=== PATIENT | female | born 1970 | race African-American/Black ===

== ENCOUNTER 2018-09-13 09:40 | Emergency (ER) | payer SELFPAY ==
--- NOTE | 2018-09-13 10:00 | ER Document Report ---
ED Respiratory Problem - General Chief Complaint: Productive Cough Stated Complaint: COUGH/DIFFICULTY BREATHING Time Seen by Provider: 09/13/18 09:55 Notes: 48-year-old female presented to ED for cough cold congestion sore to her back. She denies any fever. She states the cough is been on and off for 2 weeks. She has not had any fever throughout this episode. She is not coughing up anything. Patient is alert oriented respirations regular and unlabored speaking in full sentences walks with even steady gait. TRAVEL OUTSIDE OF THE [place] IN LAST 30 DAYS: No - HPI Patient complains to provider of: Cough Onset: Other - 2 weeks Duration: Intermittent episodes Initiating Event: URI Quality of pain: Achy Severity: Mild Pain Level: 2 Cough: Nonproductive Sputum amount: None Associated symptoms: Congestion, Cough, PND, Runny nose, Sinus pain/pressure, Short of breath Similar symptoms previously: Yes Recently seen / treated by doctor: No - Related Data Allergies/Adverse Reactions: No Known Allergies Allergy (Verified 09/13/18 09:43) Past Medical History - General Information source: POA - Power of Pathology Laboratory Director - Social History Smoking Status: Never Smoker Frequency of alcohol use: Social Drug Abuse: None Occupation: Customer service Lives with: Spouse/Significant other - Female significant other Family History: Reviewed & Not Pertinent Patient has suicidal ideation: No Patient has homicidal ideation: No - Past Medical History Cardiac Medical History: Reports: Hx Hypertension - States she has been told just to watch what she eats and drinks Pulmonary Medical History: Reports: Hx Bronchitis EENT Medical History: Reports: None Neurological Medical History: Reports: None Endocrine Medical History: Reports: None Renal/ Medical History: Reports: None Malignancy Medical History: Reports: None GI Medical History: Reports: None Musculoskeletal Medical History: Reports None Skin Medical History: Reports None Psychiatric Medical History: Reports: None Traumatic Medical History: Reports: None Infectious Medical History: Reports: None Surgical Hx: Negative Past Surgical History: Reports: None - Immunizations Immunizations up to date: Yes Review of Systems - Review of Systems Constitutional: Recent illness. denies: Chills, Fever EENT: No symptoms reported, Nose congestion, Nose discharge, Sinus pressure, Sinus discharge Cardiovascular: No symptoms reported Respiratory: Cough Gastrointestinal: No symptoms reported Genitourinary: No symptoms reported Female Genitourinary: No symptoms reported Musculoskeletal: No symptoms reported Skin: No symptoms reported Hematologic/Lymphatic: No symptoms reported Neurological/Psychological: No symptoms reported -: Yes All other systems reviewed and negative Physical Exam - Vital signs Vitals: Temp Pulse Resp BP Pulse Ox 98.4 F 105 H 20 154/92 H 97 09/13/18 09:48 09/13/18 09:48 09/13/18 09:48 09/13/18 09:48 09/13/18 09:48 Interpretation: Normal - General General appearance: Appears well, Alert - HEENT Head: Normocephalic, Atraumatic Eyes: Normal Pupils: PERRL Ears: Normal External canal: Normal Tympanic membrane: Normal Sinus: Normal Nasal: Purulent discharge, Swelling Mouth/Lips: Normal Mucous membranes: Normal Pharynx: Post nasal drainage Neck: Normal - Respiratory Respiratory status: No respiratory distress. No: Respiratory distress, Cyanosis, Depressed respirations, Tachypnea Chest status: Nontender Breath sounds: Nonproductive cough. No: Productive cough, Rales, Rhonchi, Stridor, Wheezing Chest palpation: Normal - Cardiovascular Rhythm: Regular Heart sounds: Normal auscultation Murmur: No - Abdominal Inspection: Normal Distension: No distension Bowel sounds: Normal Tenderness: Nontender Organomegaly: No organomegaly - Back Back: Normal, Nontender - Extremities General upper extremity: Normal inspection, Nontender, Normal color, Normal ROM, Normal temperature General lower extremity: Normal inspection, Nontender, Normal color, Normal ROM, Normal temperature, Normal weight bearing. No: Mili's sign - Neurological Neuro grossly intact: Yes Cognition: Normal Orientation: AAOx4 Veda Coma Scale Eye Opening: Spontaneous Veda Coma Scale Verbal: Oriented Veda Coma Scale Motor: Obeys Commands [place] Coma Scale Total: 15 Speech: Normal Motor strength normal: LUE, RUE, LLE, RLE Sensory: Normal - Psychological Associated symptoms: Normal affect, Normal mood - Skin Skin Temperature: Warm Skin Moisture: Dry Skin Color: Normal Course - Re-evaluation Re-evalutation: 09/13/18 10:30 X-ray discussed with patient and written report of x-ray given to patient. Patient was instructed to use cold medicine that is good for high blood pressure as she does have elevated blood pressure. Patient states she knows she has had blood pressure but it comes and goes. She has been instructed to follow-up with her primary doctor. After performing a Medical Screening Examination, I estimate there is LOW risk for ACUTE CORONARY SYNDROME, RESPIRATORY FAILURE, SEPSIS OR MENINGITIS, thus I consider the discharge disposition reasonable. I have reevaluated this patient multiple times and no significant life threatening changes are noted. The patient and I have discussed the diagnosis and risks, and we agree with discharging home with close follow-up. We also discussed returning to the Emergency Department immediately if new or worsening symptoms occur. We have discussed the symptoms which are most concerning (e.g., changing or worsening pain, trouble swallowing or breathing, neck stiffness, fever) that necessitate immediate return. - Vital Signs Vital signs: Temp Pulse Resp BP Pulse Ox 98.4 F 105 H 20 154/92 H 97 09/13/18 09:48 09/13/18 09:48 09/13/18 09:48 09/13/18 09:48 09/13/18 09:48 - Diagnostic Test Radiology reviewed: Image reviewed, Reports reviewed Discharge - Discharge Clinical Impression: URI (upper respiratory infection) Qualifiers: URI type: unspecified viral URI Qualified Code(s): J06.9 - Acute upper respiratory infection, unspecified Condition: Stable Disposition: HOME, SELF-CARE Instructions: Family Physicians / Practices Additional Instructions: UPPER RESPIRATORY ILLNESS: You have a viral infection of the respiratory passages -- a "cold." This common infection causes nasal congestion, drainage, and often sore throat and cough. It is highly contagious. The disease usually lasts about 10 to 14 days. There is no "cure" for the viral infection -- it must run its course. If there is a complication, such as bacterial infection in the nose, sinuses, middle ear, or bronchial tubes, antibiotics may be required. The antibiotics won't affect the virus. Drink plenty of fluids. A humidifier may help. An expectorant medication or decongestant may make you more comfortable. Use acetaminophen or ibuprofen for fever or aches. See the doctor if fever persists over two days, if there is any significant worsening of your symptoms, or if you simply fail to improve as expected. USE OF ACETAMINOPHEN (Tylenol): Acetaminophen may be taken for pain relief or fever control. It's much safer than aspirin, offering a wider range of "safe" dosages. It is safe during . Some brand names are Tylenol, Panadol, Datril, Anacin 3, Tempra, and Liquiprin. Acetaminophen can be repeated every four hours. The following are maximum recommended dosages: >89 pounds or adults 650 mg to 900 mg Acetaminophen can be repeated every four hours. Maximum dose not to exceed 4000 mg a day. Please use Coricidin HB for your cough and cold symptoms as you have elevated blood pressure. You can also use Flonase nasal spray, Chloraseptic throat spray, salt and soda solution gargles to remove the phlegm from the back your throat. Salt and soda solution 1 quart of water 1 tablespoon of salt 1 teaspoon of baking soda Mixed 3 ingredients together and boil for 1 minute Placed in a covered quart jar Use 1/2 ounce of cold solution to gargle 3 times a day FOLLOW-UP CARE: If you have been referred to a physician for follow-up care, call the physicians office for an appointment as you were instructed or within the next two days. If you experience worsening or a significant change in your symptoms, notify the physician immediately or return to the Emergency Department at any time for re-evaluation. Forms: Elevated Blood Pressure, Return to Work
--- NOTE | 2018-09-13 10:18 | RADIOLOGY REPORT (SQ) ---
EXAM DESCRIPTION: CHEST 2 VIEWS COMPLETED DATE/TIME: 09/13/2018 10:04 am REASON FOR STUDY: persistent cough COMPARISON: None. EXAM PARAMETERS: NUMBER OF VIEWS: two views TECHNIQUE: Digital Frontal and Lateral radiographic views of the chest acquired. RADIATION DOSE: NA LIMITATIONS: none FINDINGS: LUNGS AND PLEURA: No opacities, masses or pneumothorax. No pleural effusion. MEDIASTINUM AND HILAR STRUCTURES: No masses or contour abnormalities. HEART AND VASCULAR STRUCTURES: Heart normal size. No evidence for failure. BONES: No acute findings. Degenerative changes in the spine. HARDWARE: None in the chest. OTHER: No other significant finding. IMPRESSION: NO ACUTE RADIOGRAPHIC FINDING IN THE CHEST. TECHNICAL DOCUMENTATION: JOB ID: [id number] [employer]- All Rights Reserved Reading location - IP/workstation name: [email or web address]
[2018-09-13 10:30] VITALS: BP 167/99
== END 2018-09-13 10:30 | disposition home or self-care (01) ==
LOC: ER 09:40
DX: J06.9 Acute upper respiratory infection, unspecified (principal); B97.89 Other viral agents as the cause of diseases classified elsewhere; R05 Cough; R09.82 Postnasal drip; R09.89 Other specified symptoms and signs involving the circulatory and respiratory systems; J34.89 Other specified disorders of nose and nasal sinuses; R06.02 Shortness of breath; I10 Essential (primary) hypertension
CPT/HCPCS: 71046; 99283

== ENCOUNTER 2020-04-26 08:36 | Emergency (ER) | payer BC, OTHER ==
[2020-04-26 10:39] LABS: HEMATOCRIT 31.2 % (36.0-47.0); HEMOGLOBIN 10.1 g/dL (12.0-15.5); MEAN CORPUSCULAR HEMOGLOBIN 23.2 pg (27.0-33.4); MEAN CORPUSCULAR HGB CONC 32.5 g/dL (32.0-36.0); MEAN CORPUSCULAR VOLUME 71 fl (80-97); RED BLOOD COUNT 4.38 10^6/uL (3.72-5.28); RED CELL DISTRIBUTION WIDTH 29.5 % (11.5-14.0); WHITE BLOOD COUNT 7.9 10^3/uL (4.0-10.5)
[2020-04-26 10:51] LABS: ALBUMIN 3.5 g/dL (3.5-5.0); ALKALINE PHOSPHATASE 237 U/L (38-126); ANION GAP 8 (5-19); ASPARTATE AMINO TRANSFERASE 44 U/L (14-36); BILIRUBIN,DIRECT 0.3 mg/dL (0.0-0.4); BILIRUBIN,TOTAL 0.6 mg/dL (0.2-1.3); BLOOD UREA NITROGEN 7 mg/dL (7-20); CALCIUM 9.1 mg/dL (8.4-10.2); CARBON DIOXIDE 27 mmol/L (22-30); CHLORIDE 105 mmol/L (98-107); GLUCOSE 132 mg/dL (75-110); POTASSIUM 4.5 mmol/L (3.6-5.0); TOTAL PROTEIN 7.8 g/dL (6.3-8.2)
--- NOTE | 2020-04-26 11:00 | ER Document Report ---
ED Extremity Problem, Lower - General Chief Complaint: Feet Swelling Stated Complaint: FEET SWELLING Time Seen by Provider: 04/26/20 10:59 Primary Care Provider: VITOR ROSADO MD [Primary Care Provider] - Follow up as needed Mode of Arrival: Ambulatory Information source: Patient Notes: 04/26/20 09:54 - ED Nursing Note by GABRIELA BELLO Acct Num: [id number] : 1970 Patient Age: 50 Addendum entered by GABRIELA BELLO RN 04/26/20 10:00: PCM is mike leal, pt is on doxy. Original Note: pt comes to ed from home via pov brought by self for c/o 6 day onset of bi lateral feet swelling. pt spoke with pcm iris on sat and was watching salt intake. no hx of chf. pt recently covid + and was cleared from quarantine 2 weeks ago but has residual dry cough and is on abx for it. reports swelling is to her shins now and redness to feet. no pain. +2-3 pitting edema to BLE and redness. MY NOTES 50-year-old female arrives with around 1 week history of bilateral leg edema with cellulitis to the anterior legs right greater than left extending to the dorsum of feet. 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 Even her boss got infected who is asymptomatic. His test was positive for matrinez as well. Patient was quarantined until 2 weeks ago. She denies any prior history of leg edema or CHF or cardiomyopathy. I spoke to Dr. Filipe Feliz and he advised echo to check on cardiomyopathy status post viral Covid load. Patient denies any dyspnea on exertion or hemoptysis or skin lesions dysuria diarrhea constipation black tarry stools. She does admit to nonproductive cough and some rhinorrhea continuing. She has been discussing her condition with Dr. Iris Khan who advised her to try a low-salt diet. Patient tried this but continues to have leg edema.. TRAVEL OUTSIDE OF THE [place] IN LAST 30 DAYS: No - HPI Patient complains to provider of: Altered sensation, Pain, Swelling. No: Injury Location: Knee, Leg, Great Toe. No: Back, Buttock, Foot, Thigh Occurred: Last week Where: Home. No: Longterm Onset/Duration: Sudden, Persistent Quality of pain: Achy Severity: Mild Pain Level: 1 Context: Wearing shoes. denies: Burn, Crush, Direct blow, Fell, Laceration, Prolonged pressure on ext, Recent immobilization, Recent surgery, Recent travel, Stubbed, Twisted Recent injury: No Associated symptoms: Fever Exacerbated by: Movement, Walking Relieved by: Nothing - Related Data Allergies/Adverse Reactions: No Known Allergies Allergy (Verified 04/26/20 09:49) Home Medications: metorpolol, zyrtec, iron Past Medical History - Social History Smoking Status: Never Smoker Cigarette use (# per day): No Chew tobacco use (# tins/day): No Smoking Education Provided: No Frequency of alcohol use: Occasional Drug Abuse: None Lives with: Family Family History: Reviewed & Not Pertinent Patient has suicidal ideation: No Patient has homicidal ideation: No - Past Medical History Cardiac Medical History: Reports: Hx Hypertension - States she has been told just to watch what she eats and drinks Pulmonary Medical History: Reports: Hx Bronchitis Renal/ Medical History: Denies: Hx Peritoneal Dialysis - Immunizations Immunizations up to date: Yes Review of Systems - Review of Systems Constitutional: See HPI, Weakness, Recent illness EENT: No symptoms reported Cardiovascular: No symptoms reported Respiratory: No symptoms reported Gastrointestinal: No symptoms reported Genitourinary: No symptoms reported Female Genitourinary: No symptoms reported Musculoskeletal: No symptoms reported, See HPI, Leg swelling, Ankle swelling Skin: No symptoms reported Hematologic/Lymphatic: No symptoms reported Neurological/Psychological: No symptoms reported Physical Exam - Vital signs Vitals: Temp Pulse Resp BP Pulse Ox 99.2 F 123 H 18 170/99 H 97 04/26/20 08:39 04/26/20 08:39 04/26/20 08:39 04/26/20 08:39 04/26/20 08:39 Interpretation: Normal, Hypertensive, Tachycardic - General General appearance: Appears well, Alert In distress: None - HEENT Head: Normocephalic, Atraumatic Eyes: Normal Pupils: PERRL - Respiratory Respiratory status: No respiratory distress Chest status: Nontender Breath sounds: Normal Chest palpation: Normal - Cardiovascular Rhythm: Tachycardia - Heart rate around 125 bpm Heart sounds: Normal auscultation Murmur: No - Abdominal Inspection: Normal Distension: No distension Bowel sounds: Normal Tenderness: Nontender Organomegaly: No organomegaly - Rectal Hemorrhoids: Other - deferred - Genitourinary Bimanuel exam: Other - deferred - Back Back: Normal, Nontender - Extremities General upper extremity: Normal inspection, Nontender, Normal color, Normal ROM, Normal temperature General lower extremity: Tender, Edema - Patient with diffuse +2 pitting edema from feet to knees bilaterally with stasis dermatitis bilaterally anterior legs and feet right greater than left. Tenderness is greater around mid shins bilaterally., Normal weight bearing. No: Mili's sign - Neurological Neuro grossly intact: Yes Cognition: Normal Orientation: AAOx4 Veda Coma Scale Eye Opening: Spontaneous [place] Coma Scale Verbal: Oriented Veda Coma Scale Motor: Obeys Commands Veda Coma Scale Total: 15 Speech: Normal Motor strength normal: LUE, RUE, LLE, RLE Sensory: Normal - Psychological Associated symptoms: Normal affect, Normal mood - Skin Skin Temperature: Warm Skin Moisture: Dry Skin Color: Erythema - Erythema bilateral lower extremities and feet shins as per extremity exam Course - Vital Signs Vital signs: Temp Pulse Resp BP Pulse Ox 99.2 F 123 H 18 170/99 H 97 04/26/20 08:39 04/26/20 08:39 04/26/20 08:39 04/26/20 08:39 04/26/20 08:39 - Laboratory Results Result Diagrams: 04/26/20 10:12 04/26/20 10:12 Laboratory Results Interpreted: 04/26/20 04/26/20 04/26/20 10:12 10:12 12:00 Hgb 10.1 L Hct 31.2 L MCV 71 L MCH 23.2 L RDW 29.5 H Monocytes % (Manual) 14 H Glucose 132 H AST 44 H ALT 41 H Alkaline Phosphatase 237 H Urine Protein 100 H Urine Urobilinogen 2.0 H Ur Leukocyte Esterase SMALL H Critical Laboratory Results Reviewed: Yes Attending or Supervising Physician who Reviewed Labs: KESHA NASH JR - Radiology Results Critical Radiology Results Reviewed: Yes Attending or Supervising Physician who Reviewed Radiology: KESHA NASH JR - EKG Interpretation by Me EKG shows normal: Sinus rhythm Rate: Tachycardia Rhythm: NSR - No ST elevation no ST depression and no T wave depression and this EKG was read by myself and I agree with the EKG interpretation as well. Critical Care Note - Critical Care Note Total time excluding time spent on procedures (mins): 30 - with cardiology consults Comments: I spoke with Dr. Maurice Dent at 1800 and he advises blood pressure medicine like lisinopril with HCTZ and he will see this patient in the office. Discharge - Discharge Clinical Impression: Leg edema, Stasis dermatitis of both legs, COVID-19, LVH (left ventricular hypertrophy) Hypertension Qualifiers: Hypertension type: unspecified Qualified Code(s): I10 - Essential (primary) hypertension UTI (urinary tract infection) Qualifiers: Urinary tract infection type: acute cystitis Hematuria presence: without hematuria Qualified Code(s): N30.00 - Acute cystitis without hematuria Clinical Impression: (Ruled Out): Cardiomyopathy Disposition: HOME, SELF-CARE Additional Instructions: Follow-up with Dr. Dent in office. He will call you tomorrow as well. Return to ER as needed take medicines as directed encourage fluids off work as directed Prescriptions: Cephalexin Monohydrate [Keflex 500 mg Capsule] 500 mg PO TID 5 Days #30 capsule Lisinopril/Hydrochlorothiazide [Lisinopril-Hctz 20-12.5 mg Tab] 1 each PO DAILY #30 tablet Forms: Return to Work Referrals: VITOR ROSADO MD [Primary Care Provider] - Follow up as needed LÓPEZ DENT MD [ACTIVE STAFF] - Follow up as needed
[2020-04-26 11:14] LABS: ANISOCYTOSIS 4+
[2020-04-26 11:25] LABS: ABSOLUTE MONOCYTES # (MANUAL) 1.1 10^3/uL (0.1-1.4); BASOPHILS % (MANUAL) 0 % (0-2); EOSINOPHILS % (MANUAL) 0 % (0-6); LYMPHOCYTES % (MANUAL) 13 % (13-45); MONOCYTES % (MANUAL) 14 % (3-13); SEGMENTED NEUTROPHILS % (MAN) 73 % (42-78); TOTAL CELLS COUNTED 100
[2020-04-26 11:27] LABS: TARGET CELLS SLIGHT
[2020-04-26] MEDS ORDERED: CEFTRIAXONE INJ 1000 MG VIAL IV ONE (11:28)
[2020-04-26 11:29] LABS: PLATELET CLUMPS PRESENT; PLATELET COMMENT INCREASED; PLATELET LARGE PRESENT
[2020-04-26 11:30] LABS: HYPOCHROMASIA SLIGHT; OVALOCYTES 1+
[2020-04-26 11:31] LABS: POIKILOCYTOSIS 2+
[2020-04-26 11:32] LABS: PLATELET COUNT 340 10^3/uL (150-450); PROTHROMBIN TIME 14.4 SEC (11.4-15.4)
[2020-04-26 11:35] LABS: NT PRO BNP 31 pg/mL (<125)
[2020-04-26 11:42] LABS: TROPONIN I < 0.012 ng/mL
--- NOTE | 2020-04-26 11:57 | RADIOLOGY REPORT (SQ) ---
EXAM DESCRIPTION: CHEST SINGLE VIEW IMAGES COMPLETED DATE/TIME: 04/26/2020 11:30 am REASON FOR STUDY: cough, recent covid 1month ago COMPARISON: 09/13/2018 EXAM PARAMETERS: NUMBER OF VIEWS: One view. TECHNIQUE: Single frontal radiographic view of the chest acquired. RADIATION DOSE: NA LIMITATIONS: None. FINDINGS: LUNGS AND PLEURA: No opacities, masses or pneumothorax. No pleural effusion. Scattered ca lcified granuloma, stable. MEDIASTINUM AND HILAR STRUCTURES: No masses. Contour normal. HEART AND VASCULAR STRUCTURES: Heart normal in size. Normal vasculature. BONES: No acute findings. HARDWARE: None in the chest. OTHER: No other significant finding. IMPRESSION: No focal consolidation or other evidence of acute intrathoracic process. TECHNICAL DOCUMENTATION: JOB ID: [id number] 2010 [employer]- All Rights Reserved Reading location - IP/workstation name: [email or web address]
[2020-04-26 13:57] LABS: APPEARANCE,URINE CLOUDY; BILIRUBIN,URINE NEGATIVE (NEGATIVE); GLUCOSE, URINE NEGATIVE (NEGATIVE); KETONES,URINE NEGATIVE (NEGATIVE); LEUKOCYTE ESTERASE,URINE SMALL (NEGATIVE); NITRITE,URINE NEGATIVE (NEGATIVE); PROTEIN,URINE 100 mg/dL (NEGATIVE); URINE SPECIFIC GRAVITY 1.021
[2020-04-26 13:58] LABS: COLOR,URINE YELLOW
--- NOTE | 2020-04-26 17:39 | XCELERA REPORT ---
[address] [address] Transthoracic Echocardiogram Report Name: RAMAKRISHNA SINGH Age: 50 yrs Gender: Female : 1970 Patient Status: Emergency Patient Location: ER Study Date: 04/26/2020 04:24 PM History: CHF Leg edema Height: 67 in Weight: 340 lb BSA: 2.5 m2 Procedure: A complete two-dimensional transthoracic echocardiogram was performed (2D, M-mode, spectral and color flow Doppler). The study was technically difficult with many images being suboptimal in quality. Reason For Study: s/p covid4 dec with rudi leh edema;DrGeoge to read Previous Evaluation: No previous studies were available. History: CHF. Edema. Ordering Physician: KESHA NASH Performed By: Sarah Washburn Interpretation Summary Valves poorly seen. Suboptimal Doppler evaluation as well. Left ventricular systolic function is normal. The Ejection Fraction estimate is 60-65% The right ventricle is normal in size and function. There is a trace amount of mitral regurgitation There is no aortic valve stenosis There is a trace amount of tricuspid regurgitation There is no pericardial effusion. MMode/2D Measurements & Calculations RVDd: 2.6 cm LVIDd: 5.5 cm FS: 31.6 % Ao root diam: 3.3 cm IVSd: 1.3 cm LVIDs: 3.7 cm EDV(Teich): 146.0 ml Ao root area: 8.6 cm2 LVPWd: 1.1 cm ESV(Teich): 59.9 ml LA dimension: 4.2 cm EF(Teich): 58.9 % Doppler Measurements & Calculations MV E max tony: MV P1/2t max tony: Ao V2 max: LV V1 max P.3 cm/sec 91.7 cm/sec 146.7 cm/sec 6.5 mmHg MV A max tony: MV P1/2t: 62.1 msec Ao max PG: LV V1 max: 86.6 cm/sec MVA(P1/2t): 3.5 cm2 8.6 mmHg 127.3 cm/sec MV E/A: 0.87 MV dec slope: 432.6 cm/sec2 MV dec time: 0.18 sec PA V2 max: MV P1/2t-pr_phl: 109.6 cm/sec 62.1 msec PA max P.8 mmHg Left Ventricle There is mild to moderate concentric left ventricular hypertrophy. The left ventricle is mildly dilated. Left ventricular systolic function is normal. The Ejection Fraction estimate is 60-65%. Doppler measurements suggest impaired left ventricular relaxation, which is associated with grade I/IV or mild diastolic dysfunction. Regional wall motion abnormalities cannot be excluded due to limited visualization. Right Ventricle The right ventricle is normal in size and function. Atria The right atrium is normal. The left atrium is mildly dilated. The interatrial septum is intact with no evidence for an atrial septal defect. There is no Doppler evidence for an interatrial shunt. Mitral Valve There is a trace amount of mitral regurgitation. Aortic Valve The aortic valve is not well visualized secondary to technical limitations. The aortic valve opens well. There is no aortic valve stenosis. No aortic regurgitation is present. Tricuspid Valve The tricuspid valve is not well visualized secondary to technical limitations. There is no tricuspid stenosis. There is a trace amount of tricuspid regurgitation. Tricuspid regurgitation jet envelope not well defined to measure RV systolic pressure accurately. Pulmonic Valve The pulmonic valve is not well visualized. There is no pulmonic valvular stenosis. Great Vessels The aortic root is normal size. The inferior vena cava appeared normal and decreased < 50% with respiration (RAP 10-15 mmHg). Effusions There is no pericardial effusion. : KESHA NASH Anil
[2020-04-26] MEDS ORDERED: BUMETANIDE INJ/PF 1 MG/4 ML SDV IV ONE (18:04)
[2020-04-26] MEDS ORDERED: ENALAPRILAT DIHYDRATE INJ/PF 2.5 MG/2 ML SDV IV ONE (19:10)
[2020-04-26 19:24] VITALS: BP 163/101
== END 2020-04-26 19:20 | disposition home or self-care (01) ==
LOC: ER 08:36
DX: U07.1 COVID-19 (principal); N30.00 Acute cystitis without hematuria; I11.0 Hypertensive heart disease with heart failure; I87.2 Venous insufficiency (chronic) (peripheral); R53.1 Weakness; R22.43 Localized swelling, mass and lump, lower limb, bilateral
CPT/HCPCS: 99285; 96375; 96365; 36415; 87040; 82550; 85025; 85610; 80053; 81001; 84484; 83880; 93306; 71045; J3490 ×2; J0696